=== PATIENT | female | born 1990 | race Caucasian/White ===

== ENCOUNTER 2017-06-18 17:11 | Emergency (ER) | payer OTHER ==
[~2017-06-18] VITALS: Ht 175.3 cm; Wt 49.9 kg
[2017-06-18] MEDS ORDERED: DOXYCYCLINE 10100 MG PO (18:09)
== END 2017-06-18 18:58 | disposition home or self-care (01) ==
LOC: ER 17:11
DX: S61.255A Open bite of left ring finger without damage to nail, initial encounter (principal); S51.851A Open bite of right forearm, initial encounter; Z88.0 Allergy status to penicillin; W54.0XXA Bitten by dog, initial encounter; Y93.89 Activity, other specified; Y92.89 Other specified places as the place of occurrence of the external cause; Y99.8 Other external cause status